=== PATIENT | male | born 1990 | race Two or more races ===

== ENCOUNTER 2020-07-09 12:15 | Inpatient (IN) | payer MEDICAID, OTHER ==
[~2020-07-09] VITALS: Ht 170.2 cm; Wt 93.0 kg
[2020-07-09 14:21] LABS: Basophils # (auto) 0 10 ^3/uL (0-0.2); Basophils % (auto) 0.4 % (0.0-2.0); Eosinophils # (auto) 0 10 ^3/uL (0-0.8); Eosinophils % (auto) 0.4 % (0.0-7.0); Hemoglobin 16.5 g/dL (13.5-17.5); Lymphocytes # (auto) 1.1 10 ^3/uL (0.4-5.4); Lymphocytes % (auto) 11.1 % (10.0-50.0); Mean Corpuscular Hemoglobin 30.3 pg (28.0-32.0); Mean Corpuscular Hgb Conc. 33.6 g/dL (32.0-36.0); Mean Corpuscular Volume 90.3 fL (80.0-100.0); Monocytes # (auto) 0.6 10 ^3/uL (0-1.3); Monocytes % (auto) 6.4 % (0.0-12.0); Neutrophils # (auto) 8.2 10 ^3/uL (1.6-8.6); Neutrophils % (auto) 81.7 % (37.0-80.0); Platelet Count (auto) 248 10^3/uL (140-450); Red Blood Cells 5.43 10^6/uL (4.5-5.90); Red Cell Distribution Width 12.7 % (11.8-14.3); White Blood Cell 10.1 10^3/uL (4.4-10.8)
[2020-07-09] MEDS ORDERED: PANTOPRAZOLE 40 MG/10 ML VIAL INJ IV ONE (14:30)
[2020-07-09] MEDS ORDERED: MORPHINE SULFATE 4 MG/ML SYR/VIAL IV ONE (14:30)
[2020-07-09] MEDS ORDERED: ONDANSETRON HCL 4 MG/2 ML VIAL IV ONE (14:30)
[2020-07-09 14:36] LABS: Calcium 8.7 mg/dL (8.5-10.1); Magnesium 2.3 mg/dL (1.6-2.6); Potassium 4.2 mmol/L (3.5-5.1)
[2020-07-09 14:38] LABS: BUN/Creatinine Ratio 13.9
[2020-07-09 14:41] LABS: Bilirubin, Total 3.3 mg/dL (0.2-1.0); Total Protein 7.7 g/dL (6.4-8.2)
[2020-07-09] MEDS ORDERED: MORPHINE SULF INJ 2 MG/ML SYRINGE 1ML IV PRN (17:15)
[2020-07-09] MEDS ORDERED: PROMETHAZINE HCL 25 MG/ML 1ML IV PRN (17:15)
[2020-07-09] MEDS: FAMOTIDINE (10MG/ML) 2ML VL IV SCH (17:45)
[2020-07-09] MEDS: SODIUM CHLORIDE 0.9% 1,000 ML IV SCH (17:45)
[2020-07-09] MEDS ORDERED: IBUP200C3 PO (18:32)
--- NOTE | 2020-07-09 22:35 | NUR ---
Patient arrived in unit Patient arrived via gurney. Assumed care of patient, awake and alert. A&Ox4. No S/S of distress/SOB or pain. Safety measures maintained by keeping the bed locked in lowest position, personal items and call light within reach. Oriented patient to room, unit, and bed; patient verbalized understanding. Instructed on POC and to call for assist PRN, will continue to monitor for changes Q1hr and PRN.
--- NOTE | 2020-07-09 23:00 | NUR ---
RESOURCE NURSE: completed admission questions for nightshift RN Randi. Completed belonging list and its in physical chart. Patient had large amount of kumari at bedside: $1800.00 dollars, 18 100 dollar bills. Counted kumari in front of patient and RN Randi, placed in "valuable personal belonging dark de la fuente bag" : valuable personal belonging bag number is #[id number]. Patient initials on belonging list and valuable personal belong bag. receipt with bag number given to patient, and copies given to RN. Requested RN to call Security to have belonging bag placed in safe.
--- NOTE | 2020-07-09 23:00 | NUR ---
Valuables Was informed by resource RN Casey that patient had large amount of davidson at bedside. Total of $1800.00 dollars. Counted 18, 100 dollar bills. Davidson counted with resource RN and was placed in "valuable personal belonging dark duckworth bag". Bag number is #[id number]. Signed valuables bag with Resource RN and patient signed as well. Patient given receipt of valuables bag. Copies of bag located in chart.
--- NOTE | 2020-07-09 23:05 | NUR ---
Gave security patient valuables.
[2020-07-09 23:11] VITALS: BP 131/72
[2020-07-10] MEDS: SODIUM CHLORIDE 0.9% 1,000 ML IV SCH ×3 (03:19→23:49)
[2020-07-10 05:00] VITALS: BP 125/71
[2020-07-10] MEDS: FAMOTIDINE (10MG/ML) 2ML VL IV SCH ×2 (05:03→22:05)
[2020-07-10 05:24] LABS: Basophils # (auto) 0 10 ^3/uL (0-0.2); Basophils % (auto) 0.7 % (0.0-2.0); Eosinophils # (auto) 0.1 10 ^3/uL (0-0.8); Eosinophils % (auto) 1.3 % (0.0-7.0); Hematocrit 47.1 % (41.0-53.0); Hemoglobin 15.3 g/dL (13.5-17.5); Lymphocytes # (auto) 1.5 10 ^3/uL (0.4-5.4); Lymphocytes % (auto) 24.4 % (10.0-50.0); Mean Corpuscular Hemoglobin 29.6 pg (28.0-32.0); Mean Corpuscular Hgb Conc. 32.6 g/dL (32.0-36.0); Mean Corpuscular Volume 90.9 fL (80.0-100.0); Monocytes # (auto) 0.5 10 ^3/uL (0-1.3); Monocytes % (auto) 7.8 % (0.0-12.0); Neutrophils # (auto) 4.1 10 ^3/uL (1.6-8.6); Neutrophils % (auto) 65.8 % (37.0-80.0); Nucleated Red Blood Cells % 0.1 %; Platelet Count (auto) 195 10^3/uL (140-450); Red Blood Cells 5.17 10^6/uL (4.5-5.90); Red Cell Distribution Width 12.8 % (11.8-14.3); White Blood Cell 6.2 10^3/uL (4.4-10.8)
[2020-07-10 05:45] LABS: Albumin 3.6 g/dL (3.4-5.0); Calcium 8.3 mg/dL (8.5-10.1); Potassium 3.9 mmol/L (3.5-5.1)
[2020-07-10 05:48] LABS: BUN/Creatinine Ratio 10.8; Bilirubin, Total 4.5 mg/dL (0.2-1.0); Total Protein 6.8 g/dL (6.4-8.2)
[2020-07-10 06:02] LABS: Urine Bacteria NONE SEEN /hpf (None Seen); Urine Blood Negative /uL (Negative); Urine Mucus FEW (None Seen); Urine Specific Gravity 1.022 (1.001-1.035); Urine WBC 2 /hpf (0 - 3)
[2020-07-10 06:23] LABS: Alcohol, Urine < 3.0 mg/dL (0-10); Amphetamine Screen, Urine NEGATIVE (NEGATIVE); Barbiturate Scree,Urine NEGATIVE (NEGATIVE); Benzodiazephine Screen, Urine NEGATIVE (NEGATIVE); Cannabinoid Screen, Urine NEGATIVE (NEGATIVE); Cocaine Screen, Urine NEGATIVE (NEGATIVE); Opiate Scree,Urine POSITIVE (NEGATIVE); Phencyclidine Screen, Urine NEGATIVE (NEGATIVE)
[2020-07-10 09:00] VITALS: BP 118/60
--- NOTE | 2020-07-10 11:00 | NUR ---
DOCTOR HANSON AT BEDSIDE DISCUSSING POC AND PROCEDURE. PATIENT VERBALIZED UNDERSTANDING AND AGREED WITH POC AND PROCEDURE.
[2020-07-10 13:22] VITALS: BP 116/66
[2020-07-10] MEDS ORDERED: CEFTRIAXONE SODIUM 2 GM in D5W 5% 50 ML IV ONE (14:30)
[2020-07-10 17:11] VITALS: BP 113/62
--- NOTE | 2020-07-10 19:30 | NUR ---
Opening Shift Note Assumed care of patient, awake and alert. A&Ox4. No S/S of distress/SOB or pain. Safety measures maintained by keeping the bed locked in lowest position, 2 side rails up, personal items and call light within reach. Instructed on POC and to call for assist PRN, will continue to monitor for changes Q1hr and PRN.
[2020-07-10 21:55] VITALS: BP 125/69
[2020-07-10] MEDS: metroNIDAZOLE 500MG/100ML 100 ML IV SCH (22:05)
[2020-07-11] VITALS (7 sets, daily range): BP systolic 113–125; BP diastolic 53–82
[2020-07-11] MEDS: metroNIDAZOLE 500MG/100ML 100 ML IV SCH ×3 (06:33→21:43)
[2020-07-11 07:28] LABS: Basophils # (auto) 0.1 10 ^3/uL (0-0.2); Eosinophils # (auto) 0.2 10 ^3/uL (0-0.8); Eosinophils % (auto) 4.1 % (0.0-7.0); Hematocrit 48.3 % (41.0-53.0); Hemoglobin 16.5 g/dL (13.5-17.5); Lymphocytes # (auto) 1.7 10 ^3/uL (0.4-5.4); Lymphocytes % (auto) 29.1 % (10.0-50.0); Mean Corpuscular Hemoglobin 30.9 pg (28.0-32.0); Mean Corpuscular Hgb Conc. 34.1 g/dL (32.0-36.0); Mean Corpuscular Volume 90.6 fL (80.0-100.0); Monocytes # (auto) 0.5 10 ^3/uL (0-1.3); Monocytes % (auto) 8.6 % (0.0-12.0); Neutrophils # (auto) 3.3 10 ^3/uL (1.6-8.6); Neutrophils % (auto) 57.2 % (37.0-80.0); Nucleated Red Blood Cells % 0.1 %; Platelet Count (auto) 213 10^3/uL (140-450); Red Blood Cells 5.33 10^6/uL (4.5-5.90); Red Cell Distribution Width 12.9 % (11.8-14.3); White Blood Cell 5.8 10^3/uL (4.4-10.8)
[2020-07-11 07:48] LABS: BUN/Creatinine Ratio 12.2; Potassium 3.8 mmol/L (3.5-5.1)
[2020-07-11 07:54] LABS: INR 1.08 (0.9-1.15)
[2020-07-11] MEDS: SODIUM CHLORIDE 0.9% 1,000 ML IV SCH ×2 (09:22→20:42)
[2020-07-11] MEDS: FAMOTIDINE (10MG/ML) 2ML VL IV SCH ×2 (09:22→21:43)
[2020-07-11] MEDS: cefTRIAXone 1GM/50ML D5W 50 ML IV SCH (09:22)
--- NOTE | 2020-07-11 19:45 | NUR ---
Opening Shift Note Assumed care of patient, awake and alert. Patient laying in bed. A&Ox4. No S/S of distress/SOB or pain. Safety measures maintained by keeping the bed locked in lowest position, personal items and call light within reach. Instructed on POC and to call for assist PRN, will continue to monitor for changes Q1hr and PRN.
[2020-07-12] MEDS: SODIUM CHLORIDE 0.9% 1,000 ML IV SCH ×2 (05:15→15:31)
[2020-07-12] MEDS: metroNIDAZOLE 500MG/100ML 100 ML IV SCH ×3 (05:31→21:45)
[2020-07-12 05:47] VITALS: BP 117/67
[2020-07-12 05:50] LABS: Basophils # (auto) 0 10 ^3/uL (0-0.2); Basophils % (auto) 0.7 % (0.0-2.0); Eosinophils # (auto) 0.3 10 ^3/uL (0-0.8); Eosinophils % (auto) 4.3 % (0.0-7.0); Hematocrit 46.8 % (41.0-53.0); Hemoglobin 15.5 g/dL (13.5-17.5); Lymphocytes % (auto) 30.4 % (10.0-50.0); Mean Corpuscular Hemoglobin 30.1 pg (28.0-32.0); Mean Corpuscular Hgb Conc. 33.1 g/dL (32.0-36.0); Mean Corpuscular Volume 91.1 fL (80.0-100.0); Monocytes # (auto) 0.6 10 ^3/uL (0-1.3); Monocytes % (auto) 9.2 % (0.0-12.0); Neutrophils # (auto) 3.6 10 ^3/uL (1.6-8.6); Neutrophils % (auto) 55.4 % (37.0-80.0); Nucleated Red Blood Cells % 0.1 %; Platelet Count (auto) 201 10^3/uL (140-450); Red Blood Cells 5.13 10^6/uL (4.5-5.90); Red Cell Distribution Width 12.7 % (11.8-14.3); White Blood Cell 6.4 10^3/uL (4.4-10.8)
[2020-07-12 06:12] LABS: INR 1.1 (0.9-1.15); Partial Thromboplastin Time 27.3 sec (23.0-31.2)
[2020-07-12 06:17] LABS: Calcium 8.5 mg/dL (8.5-10.1); Potassium 4.1 mmol/L (3.5-5.1)
[2020-07-12 06:24] LABS: Albumin 3.6 g/dL (3.4-5.0); BUN/Creatinine Ratio 9.7; Bilirubin, Total 1.6 mg/dL (0.2-1.0); Total Protein 6.8 g/dL (6.4-8.2)
[2020-07-12] MEDS: cefTRIAXone 1GM/50ML D5W 50 ML IV SCH (09:12)
[2020-07-12] MEDS: FAMOTIDINE (10MG/ML) 2ML VL IV SCH ×2 (09:13→21:45)
[2020-07-12 09:27] VITALS: BP 117/71
--- NOTE | 2020-07-12 10:45 | NUR ---
PATIENT TAKEN DOWN TO OR FOR A PROCEDURE. NO S/S OF DISTRESS NOTED.
[2020-07-12] MEDS ORDERED: SUCCINYLCHOLINE CHLORIDE 20 MG/ML 10ML VIAL IV ONE (11:15)
[2020-07-12] MEDS ORDERED: LIDOCAINE 1% (LOCAL ANESTH.) PF 5ml SDV ONE (11:15)
[2020-07-12] MEDS ORDERED: MIDAZOLAM HCL 1MG/1ML-2 ML VIAL ONE (11:19)
[2020-07-12] MEDS ORDERED: PROPOFOL 10 MG/ML 20 ML IV ONE (11:22)
[2020-07-12] MEDS ORDERED: METOCLOPRAMIDE HCL 5MG/ml INJ 2ml VIAL ONE (11:22)
[2020-07-12] MEDS ORDERED: ROCURONIUM 10MG/ML 10ML VIAL IV ONE (11:22)
[2020-07-12] MEDS ORDERED: fentaNYL CITRATE 100 MCG/2 ML VL ONE (11:33)
[2020-07-12] MEDS ORDERED: ONDANSETRON HCL 4 MG/2 ML VIAL IV PRN (11:45)
[2020-07-12] MEDS ORDERED: HYDROmorphone HCL 2 MG/ML VL IV PRN ×2 (11:45)
[2020-07-12] MEDS ORDERED: NALOXONE HCL 0.4 MG/ML VIAL IV PRN (11:45)
[2020-07-12] MEDS ORDERED: KETOROLAC TROMETH 30 MG/ML 1ML VIAL ONE (11:59)
[2020-07-12] MEDS ORDERED: GLYCOPYRROLATE 0.2 MG/ML 1ML VIAL ONE (12:07)
[2020-07-12] MEDS ORDERED: NEOSTIGMINE 1 MG/ML INJ (10mg/10ML VIAL) ONE (12:07)
[2020-07-12 12:25] LABS: Hepatitis B Surface Antibody Negative
[2020-07-12 13:00] VITALS: BP 120/78
--- NOTE | 2020-07-12 13:00 | NUR ---
PATIENT BACK FROM OR, RESPIRATIONS ARE EVEN AND UNLABORED.PATIENT HAS 3 SMALL INCISION DRESSING ON ABDOMIN CDI. PATIENT DENIES PAIN AT THIS TIME. V/S WNL NO S/S OF DISTRESS NOTED.
[2020-07-12 13:03] LABS: Hepatitis A Total Antibody Positive
[2020-07-12 13:31] LABS: Hepatitis B Core Total AB Negative; Hepatitis B Surface Antigen Negative (Negative); Hepatitis C Antibody Negative (Negative)
[2020-07-12 17:00] VITALS: BP 116/54
[2020-07-12] MEDS: MORPHINE SULF INJ 2 MG/ML SYRINGE 1ML IV PRN (21:46)
[2020-07-12 22:19] VITALS: BP 126/65
[2020-07-13 05:00] VITALS: BP 137/79
[2020-07-13] MEDS: metroNIDAZOLE 500MG/100ML 100 ML IV SCH ×2 (05:27→14:28)
[2020-07-13] MEDS: MORPHINE SULF INJ 2 MG/ML SYRINGE 1ML IV PRN (05:28)
[2020-07-13] MEDS: SODIUM CHLORIDE 0.9% 1,000 ML IV SCH ×2 (05:28→11:15)
[2020-07-13 06:47] LABS: Basophils # (auto) 0 10 ^3/uL (0-0.2); Basophils % (auto) 0.5 % (0.0-2.0); Eosinophils # (auto) 0.1 10 ^3/uL (0-0.8); Eosinophils % (auto) 0.5 % (0.0-7.0); Hematocrit 45.2 % (41.0-53.0); Hemoglobin 15.3 g/dL (13.5-17.5); Lymphocytes # (auto) 1.4 10 ^3/uL (0.4-5.4); Lymphocytes % (auto) 14.7 % (10.0-50.0); Mean Corpuscular Hemoglobin 30.6 pg (28.0-32.0); Mean Corpuscular Hgb Conc. 33.9 g/dL (32.0-36.0); Mean Corpuscular Volume 90.1 fL (80.0-100.0); Monocytes # (auto) 0.7 10 ^3/uL (0-1.3); Monocytes % (auto) 7.4 % (0.0-12.0); Neutrophils # (auto) 7.6 10 ^3/uL (1.6-8.6); Neutrophils % (auto) 76.9 % (37.0-80.0); Platelet Count (auto) 196 10^3/uL (140-450); Red Blood Cells 5.02 10^6/uL (4.5-5.90); Red Cell Distribution Width 12.4 % (11.8-14.3); White Blood Cell 9.9 10^3/uL (4.4-10.8)
[2020-07-13 07:00] LABS: Potassium 3.4 mmol/L (3.5-5.1)
[2020-07-13 07:06] LABS: Albumin 3.5 g/dL (3.4-5.0); BUN/Creatinine Ratio 7.3; Bilirubin, Total 1.6 mg/dL (0.2-1.0); Calcium 7.9 mg/dL (8.5-10.1); Total Protein 6.6 g/dL (6.4-8.2)
[2020-07-13] MEDS: cefTRIAXone 1GM/50ML D5W 50 ML IV SCH (08:42)
[2020-07-13] MEDS: FAMOTIDINE (10MG/ML) 2ML VL IV SCH ×2 (09:46→21:58)
[2020-07-13 09:52] VITALS: BP 129/77
--- NOTE | 2020-07-13 12:23 | NUR ---
Nutrition Assessment Notes please see attached link for complete assessment Est Energy needs ABW 80 k-2000kcals (23-25 kcal/kgBW), Est Protein needs: 80-88 gms/day (1.0-1.1 gm/kgBW). Will continue to monitor and reassess prn. Addendum: 07/13/20 at 1224 [address] T [address] Amended: Links added.
[2020-07-13 13:00] VITALS: BP 122/67
--- NOTE | 2020-07-13 15:24 | NUR ---
Spoke to Surgeon regarding saturated dressing patient called this rn stating that when he coughed he noticed bleeding. Upon assessment to abd area, dressing to right abd noted saturated in blood and draining onto abd binder. Site assessed and dressing removed and found large blood clot to old dressing, incision site noted well approximated with one staple noted intact. Site cleaned with sterile gauze and no active bleeding noted at this time. Placed new 4x4 sterile gauze and covered with sterile tegaderm. No s/s of hematoma or active bleeding noted. New abd binder placed and pt instructed to splint when coughing he verbalized understanding. MD Mccord informed and states cont to monitor no further orders at this time. Will cont care
[2020-07-13 16:58] VITALS: BP 126/73
--- NOTE | 2020-07-13 19:05 | NUR ---
Patient care endorsed to Stacey freitas. Patient sitting up in bed no acute distress or sob noted. Call light within reach.
[2020-07-13 22:00] VITALS: BP 137/83
[2020-07-14 05:00] VITALS: BP 115/65
[2020-07-14 08:00] VITALS: BP 118/62
[2020-07-14] MEDS: FAMOTIDINE (10MG/ML) 2ML VL IV SCH ×2 (09:41→22:20)
[2020-07-14] MEDS: cefTRIAXone 1GM/50ML D5W 50 ML IV SCH (09:41)
[2020-07-14 10:13] LABS: Basophils # (auto) 0 10 ^3/uL (0-0.2); Basophils % (auto) 0.6 % (0.0-2.0); Eosinophils # (auto) 0.1 10 ^3/uL (0-0.8); Eosinophils % (auto) 1.1 % (0.0-7.0); Hematocrit 47.3 % (41.0-53.0); Lymphocytes # (auto) 1.6 10 ^3/uL (0.4-5.4); Lymphocytes % (auto) 21.2 % (10.0-50.0); Mean Corpuscular Hemoglobin 30.4 pg (28.0-32.0); Mean Corpuscular Hgb Conc. 33.8 g/dL (32.0-36.0); Mean Corpuscular Volume 89.8 fL (80.0-100.0); Monocytes # (auto) 0.7 10 ^3/uL (0-1.3); Monocytes % (auto) 9.7 % (0.0-12.0); Neutrophils % (auto) 67.4 % (37.0-80.0); Nucleated Red Blood Cells % 0.1 %; Platelet Count (auto) 220 10^3/uL (140-450); Red Blood Cells 5.27 10^6/uL (4.5-5.90); Red Cell Distribution Width 12.6 % (11.8-14.3); White Blood Cell 7.5 10^3/uL (4.4-10.8)
[2020-07-14 10:23] LABS: Albumin 3.8 g/dL (3.4-5.0); Calcium 8.9 mg/dL (8.5-10.1); Potassium 3.5 mmol/L (3.5-5.1)
[2020-07-14 10:32] LABS: BUN/Creatinine Ratio 7.1; Bilirubin, Total 4.5 mg/dL (0.2-1.0); Total Protein 7.3 g/dL (6.4-8.2)
[2020-07-14 11:50] VITALS: BP 111/64
--- NOTE | 2020-07-14 14:12 | NUR ---
Spoke to surgeon MD Mccord aware of patient's status including abnormal labs LFT's. New orders received for MRCP today and HIDA scan for tomorrow. Will carry out orders and cont care.
[2020-07-14 17:00] VITALS: BP 124/89
--- NOTE | 2020-07-14 18:52 | NUR ---
Spoke to Dr Hearn and new orders received for NPO status pending HIDA scan tomorrow morning. Patient notified and verbalized understanding. Will endorse to oncoming rn Addendum: 07/14/20 at 1854 by Cassie Boone, RN Patient denies any pain, denies n/v. Patient tolerated meals, MD Hearn aware.
--- NOTE | 2020-07-14 19:00 | NUR ---
Patient care endorsed endorsed care to Stacey rn, patient laying in bed comfortably in no acute distress or sob. Patient denies pain. Dressing to incision X3 s/p lap chayo c/d/i. No abd distention noted. Patient states he's passing gas. Patient denies n/v. Abd binder in place as ordered and patient constantly ambulating independently. Call light within reach.
[2020-07-14 22:00] VITALS: BP 128/72
[2020-07-15 05:00] VITALS: BP 112/71
[2020-07-15 07:27] LABS: Potassium 4.2 mmol/L (3.5-5.1)
[2020-07-15 07:40] LABS: Albumin 3.8 g/dL (3.4-5.0); Bilirubin, Total 1.9 mg/dL (0.2-1.0); Calcium 8.8 mg/dL (8.5-10.1); Total Protein 7.3 g/dL (6.4-8.2)
[2020-07-15 08:00] VITALS: BP 128/67
[2020-07-15] MEDS: cefTRIAXone 1GM/50ML D5W 50 ML IV SCH (10:14)
[2020-07-15] MEDS: FAMOTIDINE (10MG/ML) 2ML VL IV SCH (10:14)
[2020-07-15 10:47] LABS: BUN/Creatinine Ratio 12.8; Bilirubin, Total 1.9 mg/dL (0.2-1.0); Total Protein 7.9 g/dL (6.4-8.2)
[2020-07-15 12:00] VITALS: BP 112/60
--- NOTE | 2020-07-15 12:26 | NUR ---
Nutrition Followup Note Wt 93.0kg Pt was sitting in a chair next to the bed on his phone at time of rounds. Pt diet has advanced to regular per MD order. Pt with good po intake aeb pt with 94% po intake of diet prior to advancing diet per RN note. Will monitor pt tolerance of regular diet Est Energy needs ABW 80 k-2000kcals (23-25 kcal/kgBW), Est Protein needs: 80-88 gms/day (1.0-1.1 gm/kgBW). Will continue to monitor and reassess prn. Labs: Alb 3.8 WNL BM: Pt with 1 BM 07/15 per RN note Skin: BS 21 low risk PES: Altered nutrition related lab values r.t current chronic medical condition aeb hyperbil, hypocalcemia Decreased nutrient needs r.t adiposity aeb pt`s high BMI of 32.2 kgm2 Comments 1)pt po intake >75% 2) refer to [facility] on DC 3) continue current plan of care Expected Outcomes/Goals: pt will have improved labs F/u mod 3-5 days days
[2020-07-15] MEDS ORDERED: ONDA-144 PO (14:31)
[2020-07-15] MEDS ORDERED: CEPH250C PO (14:32)
[2020-07-15] MEDS ORDERED: IBUP200C95 PO (14:33)
[2020-07-15 15:27] VITALS: BP 112/60
[2020-07-15 16:55] VITALS: BP 130/69
--- NOTE | 2020-07-15 18:04 | NUR ---
Discharge instructions given as ordered. Encourage to follow up with Dr. Mccord as instructed. New prescription was sent to pt's [facility] by Dr. Hearn ( [facility] [id number] [facility] [id number]). All questions and concerns addressed. Patient verbalized understanding. Medication reconciliation form completed and copy given to patient. IV removed with catheter intact, pressure dressing applied. Pt's 1800 kumari giving back to pt by rubin Concepcion, paper was signed. Patient taken to vehicle via wheelchair with all personal belongings, accompanied by staff and family member. No distress noted at time of departure.
== END 2020-07-15 18:12 | disposition home or self-care (01) | DRG 263 ==
LOC: ER 12:15 → OVERFLOW 12:16 → WEST WING 22:44
PROVIDERS: ADMIT Internal Medicine; ATTEND Internal Medicine Nephrology
PROC: 3E013GC Introduction of Other Therapeutic Substance into Subcutaneous Tissue, Percutaneous Approach (ICD-10-PCS; 2020-07-12)
PROC: 0FT44ZZ Resection of Gallbladder, Percutaneous Endoscopic Approach (ICD-10-PCS; principal; 2020-07-12 11:15)
DX: K80.12 Calculus of gallbladder with acute and chronic cholecystitis without obstruction (principal); E66.01 Morbid (severe) obesity due to excess calories; Z68.32 Body mass index [BMI] 32.0-32.9, adult
CPT/HCPCS: 36415; 71046; 74181; 76705; 78226; 80048; 80053; 80307; 81001; 82150; 83690; 83735; 85025; 85610; 85730; 86704; 86706; 86708; 86803; 86850; 86900; 86901; 87040; 87340; 96361; 96374; 96375; C9113; G0378; J0330; J0696; J1885; J2250; J2405; J2704; J3490; J7060